=== PATIENT | male | born 1985 | race Caucasian/White ===

== ENCOUNTER 2017-09-17 19:18 | Emergency (ER) | payer MEDICAID | END 2017-09-17 19:55 | disposition left against medical advice (07) | LOC: ER 19:18 | DX: R21 Rash and other nonspecific skin eruption (principal); Z53.21 Procedure and treatment not carried out due to patient leaving prior to being seen by health care provider ==

== ENCOUNTER 2018-02-08 12:55 | Emergency (ER) | payer SELFPAY ==
[~2018-02-08] VITALS: Ht 172.7 cm; Wt 70.0 kg
[2018-02-08] MEDS ORDERED: LORAZEPAM 2MG/ML CPJ IV STA (13:08)
[2018-02-08] MEDS ORDERED: SODIUM CHLORIDE 0.9% 1,000 ML IV ONE (13:08)
[2018-02-08 14:15] LABS: BASOPHILS % 0.4 % (0.0-2.0); EOSINOPHILS % 1.1 % (0.0-5.0); HEMATOCRIT. 41.5 % (42.0-52.0); HEMOGLOBIN. 14.4 g/dL (14.0-18.0); LYMPHOCYTES % 32.1 % (20.0-50.0); MEAN CORPUSCULAR HEMOGLOBIN 32.2 pg (28.0-32.0); MEAN CORPUSCULAR VOLUME 92.5 fL (80.0-94.0); MEAN PLATELET VOLUME 8.3 fl (7.4-10.4); MONOCYTES % 8.2 % (2.0-8.0); NEUTROPHILS % 58.2 % (40.0-76.0); PLATELET 226 x1000/uL (130-400); RED BLOOD CELL COUNT 4.49 mill/uL (4.7-6.1); RED CELL DISTRIBUTION WIDTH 13.2 % (11.6-14.6)
[2018-02-08 14:20] LABS: CHLORIDE 108 mEq/L (98-107)
[2018-02-08 14:24] LABS: ETHANOL BLOOD < 10 mg/dL
[2018-02-08 17:18] VITALS: BP 124/74
[2018-02-08 17:52] LABS: CLARITY URINE CLEAR (CLEAR); COLOR URINE AMBER (YELLOW); KETONES URINE 3+ (NEGATIVE); LEUKOCYTE ESTERASE URINE NEGATIVE (NEGATIVE); NITRITE URINE NEGATIVE (NEGATIVE); OCCULT BLOOD URINE NEGATIVE (NEGATIVE); PROTEIN URINE 1+ (NEGATIVE); SPECIFIC GRAVITY URINE 1.028 (1.005-1.030)
[2018-02-08 18:12] LABS: *AMPHETAMINES SCREEN URINE PRESUMTIVE POSITIVE (NEGATIVE); *BARBITURATES SCREEN URINE NEGATIVE (NEGATIVE); *BENZODIAZEPINES SCREEN URINE NEGATIVE (NEGATIVE); *COCAINE SCREEN URINE PRESUMTIVE POSITIVE (NEGATIVE); METHADONE URINE SCREEN NEGATIVE (NEGATIVE); OPIATES URINE SCREEN NEGATIVE (NEGATIVE)
[2018-02-08 18:14] LABS: CANNABINOID URINE SCREEN PRESUMTIVE POSITIVE (NEGATIVE); PHENCYCLIDINE URINE SCREEN NEGATIVE (NEGATIVE)
== END 2018-02-08 17:22 | disposition home or self-care (01) ==
LOC: ER 13:06
DX: T43.621A Poisoning by amphetamines, accidental (unintentional), initial encounter (principal); G92 Toxic encephalopathy; Y92.098 Other place in other non-institutional residence as the place of occurrence of the external cause
CPT/HCPCS: 36415; 80053; 80305; 80307; 80329; 81003; 85025; 93005; 96361; 96374; 99284; G0482; J2060; J7030

== ENCOUNTER 2018-06-24 17:01 | Emergency (ER) | payer MEDICAID ==
[~2018-06-24] VITALS: Ht 157.5 cm; Wt 70.0 kg
[2018-06-24] MEDS ORDERED: BACITRACIN ZINC OINT UDPKT TOP ONE (17:45)
[2018-06-24 18:12] VITALS: BP 14/88
[2018-06-24] MEDS ORDERED: IBUPROFEN 400MG TABLET PO ONE (18:15)
== END 2018-06-24 18:13 | disposition home or self-care (01) ==
LOC: ER 17:01
DX: T69.022A Immersion foot, left foot, initial encounter (principal); T69.021A Immersion foot, right foot, initial encounter; Z98.890 Other specified postprocedural states; X58.XXXA Exposure to other specified factors, initial encounter
CPT/HCPCS: 99282

== ENCOUNTER 2020-07-10 20:22 | Emergency (ER) | payer MEDICAID ==
[~2020-07-10] VITALS: Ht 170.2 cm; Wt 74.0 kg
[2020-07-11] MEDS ORDERED: IBUP-2029 MT (03:20)
[2020-07-11 04:32] VITALS: BP 117/78
== END 2020-07-11 04:41 | disposition home or self-care (01) ==
LOC: ER 20:22
DX: S02.611A Fracture of condylar process of right mandible, initial encounter for closed fracture (principal); S02.66XA Fracture of symphysis of mandible, initial encounter for closed fracture; S02.85XA Fracture of orbit, unspecified, initial encounter for closed fracture; S02.40CA Maxillary fracture, right side, initial encounter for closed fracture; J45.909 Unspecified asthma, uncomplicated; Y04.0XXA Assault by unarmed brawl or fight, initial encounter; Y93.89 Activity, other specified; Y92.89 Other specified places as the place of occurrence of the external cause
CPT/HCPCS: 70486; 93005; 99284

== ENCOUNTER 2020-07-14 23:14 | Emergency (ER) | payer MEDICAID ==
[~2020-07-14] VITALS: Ht 167.6 cm; Wt 77.0 kg
[~2020-07-14 23:14] MED LIST: IBUP-2029 MT
[2020-07-14 23:50] VITALS: BP 121/77
[2020-07-15] MEDS ORDERED: KETOROLAC 60MG/2ML VIAL IM SCH (00:16)
[2020-07-15] MEDS ORDERED: IBUP-2029 PO (00:21)
[2020-07-15] MEDS ORDERED: IBUPROFEN 600MG TABLET PO SCH (00:25)
== END 2020-07-15 00:47 | disposition home or self-care (01) ==
LOC: ER 23:14
DX: S02.85XA Fracture of orbit, unspecified, initial encounter for closed fracture (principal); S02.40CA Maxillary fracture, right side, initial encounter for closed fracture; S02.609A Fracture of mandible, unspecified, initial encounter for closed fracture; Y04.0XXA Assault by unarmed brawl or fight, initial encounter; Y93.89 Activity, other specified; Y92.89 Other specified places as the place of occurrence of the external cause; Y99.8 Other external cause status
CPT/HCPCS: 99281; J1885

== ENCOUNTER 2023-06-13 20:01 | Emergency (ER) | payer MEDICAID, OTHER ==
[~2023-06-13] VITALS: Ht 180.3 cm; Wt 74.0 kg
[~2023-06-13 20:01] MED LIST changes: +IBUP-2029 PO
[2023-06-13 20:04] VITALS: O2SAT 98
[2023-06-13] MEDS ORDERED: NAPR-681 MT (21:38)
[2023-06-13] MEDS ORDERED: FLUT9.9S BOTHNSTRLS (21:38)
[2023-06-13] MEDS ORDERED: D-ME473S50 PO (21:38)
[2023-06-13] MEDS ORDERED: AMOX-494 MT (21:38)
[2023-06-13 21:44] VITALS: BP 115/70; PULSE 69; RESP 12; TEMP 98.4
== END 2023-06-13 21:47 | disposition home or self-care (01) ==
LOC: ER 20:01
DX: J01.90 Acute sinusitis, unspecified (principal)
CPT/HCPCS: 99281

== ENCOUNTER 2025-02-10 01:32 | Emergency (ER) | payer MEDICAID ==
[~2025-02-10] VITALS: Ht 167.6 cm; Wt 75.2 kg
[~2025-02-10 01:32] MED LIST changes: +AMOX-494 MT; +D-ME473S50 PO; +FLUT9.9S BOTHNSTRLS; +IBUP-1455 MT; +IBUP-1455 PO; -IBUP-2029 MT; -IBUP-2029 PO; +NAPR-681 MT
[2025-02-10 01:41] VITALS: O2SAT 100
[2025-02-10] MEDS ORDERED: CEPH500C2 MT (04:52)
[2025-02-10] MEDS ORDERED: DICL100G58 TP (04:52)
[2025-02-10] MEDS ORDERED: SULF1TAB48 MT (04:52)
[2025-02-10] MEDS ORDERED: BO1 TP (04:52)
[2025-02-10] MEDS ORDERED: IBUP-1455 MT (04:52)
[2025-02-10 05:04] VITALS: BP 120/66; PULSE 67; RESP 14; TEMP 36.6; O2SAT 100
== END 2025-02-10 05:06 | disposition home or self-care (01) ==
LOC: ER 01:32
DX: M17.0 Bilateral primary osteoarthritis of knee (principal); L03.90 Cellulitis, unspecified; M25.562 Pain in left knee; M25.561 Pain in right knee; J45.909 Unspecified asthma, uncomplicated
CPT/HCPCS: 99283

== ENCOUNTER 2025-02-19 03:54 | Emergency (ER) | payer MEDICAID ==
[~2025-02-19] VITALS: Ht 162.6 cm; Wt 84.0 kg
[~2025-02-19 03:54] MED LIST changes: +BO1 TP; +CEPH500C2 MT; +DICL100G58 TP; +SULF1TAB48 MT
[2025-02-19 03:57] VITALS: O2SAT 100
[2025-02-19] MEDS: KETOROLAC 15MG/ML VIAL IM ONE (05:20)
[2025-02-19] MEDS: LIDOCAINE 5% PATCH TOP SCH (05:21)
[2025-02-19] MEDS ORDERED: NAPR-1176 MT (05:23)
[2025-02-19] MEDS ORDERED: LIDO-53 TP (05:23)
[2025-02-19 05:50] VITALS: BP 103/55; PULSE 67; RESP 16; TEMP 36.7; O2SAT 100
== END 2025-02-19 05:50 | disposition home or self-care (01) ==
LOC: ER 03:54
DX: M25.511 Pain in right shoulder (principal); M54.2 Cervicalgia; I10 Essential (primary) hypertension; E11.9 Type 2 diabetes mellitus without complications
CPT/HCPCS: 73030; 96372; 99283; J1885; Z7610